=== PATIENT | male | born 2005 | race African-American/Black ===

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

== ENCOUNTER 2024-06-16 10:59 | Emergency (ER) | payer OTHER, SELFPAY ==
[2024-06-16] MEDS ORDERED: Acetaminophen 500 MG TAB ONE (11:21)
== END 2024-06-16 11:40 | disposition home or self-care (01) ==
LOC: MADERS 10:59
DX: J06.9 Acute upper respiratory infection, unspecified (principal); Z55.6 Problems related to health literacy
CPT/HCPCS: 87428; 99283